=== PATIENT | male | born 1935 | race Caucasian/White ===

== ENCOUNTER 2022-11-05 11:40 | Emergency (ER) | payer MEDICARE, SELFPAY ==
--- NOTE | ~2022-11-05 | CT_ITS ---
EXAMINATION: CT brain wo con DATE: 11/05/2022 11:48 INDICATION: Altered mental status with aphasia post fall in an anticoagulated patient. TECHNIQUE: Computed tomography (CT) of the head was performed without intravenous contrast. Sagittal and coronal reconstructions were performed. The mA was adjusted according to patient size. Iterative reconstruction technique was employed. The dose-length product was 681.00 mGy-cm. COMPARISON: None FINDINGS: No fracture. There is an extensive left subdural hematoma which overlies nearly the entire left cereb ral hemisphere including inferiorly along the floor of the anterior and middle cranial fossae as well as posteriorly along the left side of the tentorium but not along the falx. The hematoma reaches up to 1 cm in thickness along the lateral aspect of the left frontal and temporal lobes, significantly t hinner along the posterior half of the left cerebral hemisphere. There is a small amount of subarachn oid hemorrhage along a single left frontal lobe sulcus. The hematoma results in local mass effect wit h asymmetric narrowing of the sulci in the left cerebral hemisphere. There is mild increased prominen ce of the sulci at the right cerebral hemisphere and the overlying subarachnoid spaces consistent wit h a small amount of pre-existing diffuse cerebral volume loss. There is also mild asymmetric narrowin g of the frontal and occipital lobes of the left lateral ventricle relative to the right but no subfa lcine or uncal herniation. There is mild scattered white matter hypoattenuation consistent with chron ic small vessel ischemic disease. No acute acute infarction or masses. Ventricles are normal and symm etric. Changes of bilateral intraocular lens replacement. The orbits, paranasal sinuses and mastoid a ir cells are normal. Intracranial calcified cerebral atherosclerosis is noted. IMPRESSION: 1. Wide extent of a moderate-sized left subdural hematoma which overlies the majority of the left cer ebral hemisphere including the left side of the tentorium which results in asymmetric mild decreased size of the left lateral ventricle and the sulci in the left cerebral hemisphere but no subfalcine or uncal herniation. Dr. Redmond discussed these findings with Dr. Lowery at 11:49 AM. 2. Small amount of subarachnoid hemorrhage along a single sulcus at the left frontal lobe. 3. Age-related changes including mild diffuse volume loss and mild scattered white matter hypoattenua tion consistent with chronic small vessel ischemic disease. Reviewed, dictated and finalized at location A. IMPRESSION: 1. Wide extent of a moderate-sized left subdural hematoma which overlies the ma jority of the left cerebral hemisphere including the left side of the tentorium which results in asymmetric mild decreased size of the left lateral ventricle and the sulci in the left cerebral hemisphere but no subfalcine or uncal hernia tion. Dr. Redmond discussed these findings with Dr. Lowery at 11:49 AM. 2. Small amount of subarachnoid hemorrhage along a single sulcus at the left fr ontal lobe. 3. Age-related changes including mild diffuse volume loss and mild scattered wh ite matter hypoattenuation consistent with chronic small vessel ischemic diseas e.
[2022-11-05 11:34] VITALS: BP 152/81; PULSE 96; RESP 18; O2SAT 97
--- NOTE | 2022-11-05 11:55 | ECG_ITS ---
Measurements Intervals [place] Rate: 91 P: 36 CT: 189 QRS: 22 QRSD: 106 T: 0 QT: 382 QTc: 470 Interpretive Statements SINUS RHYTHM ATRIAL AND VENTRICULAR PREMATURE COMPLEXES INFERIOR INFARCT, AGE INDETERMINATE ABNORMAL ECG NO PREVIOUS ECG AVAILABLE FOR COMPARISON Electronically Signed On 11-05-2022 15:24:12 CDT by Richie Tariq D.O.
--- NOTE | 2022-11-05 11:56 | ED.GENADULT ---
HPI - General Adult General Chief complaint: Altered Mental Status Stated complaint: neuro symptoms Time Seen by Provider: 11/05/22 11:44 History of Present Illness HPI narrative: Patient is an 87-year-old male who presents ER with altered mental status. There is concern for CVA as patient was not making sense when trying to speak to people at a local store. Patient's daughter contacted at [phone]. Her name is Alejandra. Apparently patient had a trip and fall yesterday over a gas station house. He struck his head but did not lose consciousness. It is reported that the patient takes Plavix. Of note patient had 2 stents placed in his heart on 10/21/2022 in [place] where he resides during the lord. Patient was returning home to [place]. Review of Systems Review of Systems: ROS unobtainable: Yes unobtainable due to mental status PMFSH Past Medical History Medical History (Updated 11/05/22 @ 12:06 by Nikita Tong MD) Coronary artery disease Surgical History Surgical History (Updated 11/05/22 @ 12:02 by Nikita Tong MD) History of percutaneous coronary intervention Exam Narrative: GENERAL: Well-appearing, well-nourished, and in no acute distress. HEAD: Normocephalic, atraumatic. EYES: PERRL and EOMI. bruising inferior to the right eye. ENT: Mucous membranes moist. NECK: Supple. No midline tenderness of the C-spine CHEST: Clear to auscultation. No respiratory distress. HEART: Regular rate and rhythm. Normal peripheral pulses. ABDOMEN: Soft, nontender, nondistended. EXTREMITIES: Normal range of motion. No edema. SKIN: Warm, dry, no rash. NEURO: No facial droop, mild slurred speech. Follows commands without issue. No upper or lower extremity drift alert and oriented x1. Course Course Emergency Course: Patient excepted for transfer to [facility] ER. Patient be transferred by air medical transport as this is felt to be a time critical and life-threatening events that has occurred. Vital Signs Vital signs: Vital Signs Pulse Rate 96 11/05/22 11:34 Respiratory Rate 18 11/05/22 11:34 Blood Pressure 152/81 H 11/05/22 11:34 Pulse Oximetry 97 11/05/22 11:34 Temperature 97.8 F 11/05/22 11:58 Pulse Rate 87 11/05/22 11:58 Respiratory Rate 18 11/05/22 11:58 Blood Pressure 139/93 H 11/05/22 11:58 Pulse Oximetry 98 11/05/22 11:58 Medical Decision Making Vital Signs Vital Signs: Vital Signs Pulse Rate 96 11/05/22 11:34 Respiratory Rate 18 11/05/22 11:34 Blood Pressure 152/81 H 11/05/22 11:34 Pulse Oximetry 97 11/05/22 11:34 Temperature 97.8 F 11/05/22 11:58 Pulse Rate 87 11/05/22 11:58 Respiratory Rate 18 11/05/22 11:58 Blood Pressure 139/93 H 11/05/22 11:58 Pulse Oximetry 98 11/05/22 11:58 Lab Data 11/05/22 11:50 11/05/22 11:50 Labs: Lab Results 11/05/22 Range/Units 11:50 WBC 11.7 H (4.5-10.0) K/mm3 RBC 4.16 L (4.6-6.20) M/mm3 Hgb 13.6 L (14.0-18.0) g/dL Hct 40.3 L (42.0-52.0) % MCV 96.9 (80-100) fl MCH 32.7 (26-34) pg MCHC 33.7 (32-36) g/dl RDW 13.3 (11.5-14.5) % Plt Count 207 (150-375) k/mm3 MPV 11.1 H (7.4-10.4) fl Immature Gran % (Auto) 0.5 (0-0.5) % Neut % (Auto) 72.2 (45.5-73.1) % Lymph % (Auto) 16.7 L (18.3-44.2) % Butts % (Auto) 9.7 H (2.6-8.5) % Eos % (Auto) 0.6 (0-4.4) % Baso % (Auto) 0.3 (0.2-1.2) % Lymph # (Auto) 1.96 (0.9-3.2) K/mm3 Butts # (Auto) 1.1 H (0.1-0.6) K/mm3 Eos # (Auto) 0.1 (0-0.3) K/mm3 Baso # (Auto) 0.0 (0.0-0.1) K/mm3 Abs Immat Gran (auto) 0.06 H (0.00-0.031) K/mm3 Absolute Neuts (auto) 8.5 H (1.3-6.7) K/mm3 Absolute Nucleated RBC 0.0 (0.0-0.012) K/mm3 Nucleated RBC % 0.0 (0.0-0.2) % PT 13.6 (11.1-14.7) Seconds INR 1.0 APTT 27.7 (22.3-36.8) SECONDS Sodium 136 L (137-145) mmol/L Potassium 3.6 (3.4-5.0) mmol/L Chloride 106 (98-107) mmol/L Carbon Dioxide 21 L (2
[2022-11-05 11:58] VITALS: BP 139/93; PULSE 87; RESP 18; TEMP 36.6; O2SAT 98
[2022-11-05 11:58] LABS: Basophils Percent Auto 0.3 % (0.2-1.2); Eosinophils Absolute Auto 0.1 K/mm3 (0-0.3); Eosinophils Percent Auto 0.6 % (0-4.4); Hematocrit 40.3 % (42.0-52.0); Hemoglobin 13.6 g/dL (14.0-18.0); Immature Granulocyte Absolute 0.06 K/mm3 (0.00-0.031); Immature Granulocyte Percent A 0.5 % (0-0.5); Lymphocytes Absolute Auto 1.96 K/mm3 (0.9-3.2); Lymphocytes Percent Auto 16.7 % (18.3-44.2); Mean Corpuscular HGB Conc 33.7 g/dl (32-36); Mean Corpuscular Hemoglobin 32.7 pg (26-34); Mean Corpuscular Volume 96.9 fl (80-100); Mean Platelet Volume 11.1 fl (7.4-10.4); Monocytes Absolute Auto 1.1 K/mm3 (0.1-0.6); Monocytes Percent Auto 9.7 % (2.6-8.5); Neutrophils Absolute Auto 8.5 K/mm3 (1.3-6.7); Neutrophils Percent Auto 72.2 % (45.5-73.1); Platelet Count Result 207 k/mm3 (150-375); Red Blood Count 4.16 M/mm3 (4.6-6.20); Red Cell Distribution Width 13.3 % (11.5-14.5); White Blood Count 11.7 K/mm3 (4.5-10.0)
[2022-11-05 12:06] LABS: Prothrombin Time 13.6 Seconds (11.1-14.7)
[2022-11-05 12:07] LABS: Alanine Aminotransferase 20 U/L (6-50); Albumin Level 3.9 g/dL (3.5-5.1); Alkaline Phosphatase 96 U/L (38-126); Anion Gap 9 mmol/L (8-16); Aspartate Amino Transferase 29 U/L (17-59); Bilirubin,Total 1.2 mg/dL (0.2-1.3); Blood Urea Nitrogen 13 mg/dL (9-20); Calcium 8.7 mg/dL (8.4-10.2); Carbon Dioxide 21 mmol/L (22-30); Chloride 106 mmol/L (98-107); Estimated CRCL calculation 69 ml/min; Estimated Glomerular Filt Rate > 60; Glucose 100 mg/dL (65-110); Partial Thromboplastin Time 27.7 SECONDS (22.3-36.8); Potassium 3.6 mmol/L (3.4-5.0); Sodium 136 mmol/L (137-145)
[2022-11-05 12:18] LABS: Troponin I < 0.012 ng/mL (0.000-0.034)
[2022-11-10 10:56] LABS: Glucose Point of Care 99 mg/dl (65-105)
== END 2022-11-05 12:27 | disposition short-term general hospital (02) ==
PROVIDERS: Emergency Provider Emergency Medicine
DX: S06.5X0A Traumatic subdural hemorrhage without loss of consciousness, initial encounter (principal); S06.6X0A Traumatic subarachnoid hemorrhage without loss of consciousness, initial encounter; I25.10 Atherosclerotic heart disease of native coronary artery without angina pectoris; Z95.1 Presence of aortocoronary bypass graft; Z79.02 Long term (current) use of antithrombotics/antiplatelets; I49.3 Ventricular premature depolarization; I49.1 Atrial premature depolarization; R94.31 Abnormal electrocardiogram [ECG] [EKG]; W18.09XA Striking against other object with subsequent fall, initial encounter
CPT/HCPCS: 36415; 70450; 80053; 82948; 84484; 85025; 85610; 85730; 93005; 99291; J7030; L0140